=== PATIENT | male | born 1955 | race Caucasian/White ===

== ENCOUNTER 2019-01-17 21:09 | Emergency (ER) | payer MEDICARE, OTHER ==
[2019-01-17 22:12] VITALS: O2SAT 98
[2019-01-17] MEDS ORDERED: Hydromorphone 1 mg/ml Ampule IM ONE (23:05)
[2019-01-17] MEDS ORDERED: Phenergan 25 MG INJ IM ONE (23:06)
[2019-01-17] MEDS ORDERED: Ativan 2 MG/1 ML VIAL IM ONE (23:10)
[2019-01-17] MEDS ORDERED: DELTASONE 10 MG PO ONE (23:11)
[2019-01-17] MEDS ORDERED: Phenergan 25 MG INJ ONE (23:34)
[2019-01-17] MEDS ORDERED: Ativan 2 MG/1 ML VIAL ONE (23:35)
[2019-01-17] MEDS ORDERED: DELTASONE 20 MG ONE (23:35)
[2019-01-17] MEDS ORDERED: Hydromorphone 1 mg/ml Ampule ONE (23:35)
[2019-01-18 00:08] VITALS: BP 144/68; PULSE 65
--- NOTE | 2019-01-18 00:27 | ERPHSYRPT ---
- History of Present Illness Time Seen by Provider: 01/17/19 23:30 Source: patient, family Patient Subjective Stated Complaint: Patient states he has had a headache for 5 weeks, patient states went to chiropractory last week and has been in pain since , CT scan doen yesterday. Dr Mehta office stated arthritis in neck. refered to Dr Sorto /Pain management appointment pending paperwork Triage Nursing Assessment: Narcisa complains of headache for 5 weeks. Narcisa ambulated to ER. Patient states pain was usually on right side of head and neck now his pain is on top of his head Physician History: 63 y/o white male presents with headaches of unknown origin for 5 weeks. pt has seen his pcp, and chiropractor. pain not improved with ultracet or naproxen. pt had a ct scan of head and neck 48 hours ago and no acute process. pt has been tx for sinusitis and given muscle relaxants without benefit. pt denies head trauma and blood pressure has not been sig elevated. Timing/Duration: week(s) (5) Quality: aching, throbbing Head Pain Location: temporal Severity of Pain-Max: moderate Severity of Pain-Current: moderate Recent Head Trauma: no recent headache/trauma Associated Symptoms: denies symptoms, No confusion, No dizziness, No light- headedness, No loss of consciousness, No nausea/vomiting, No nasal congestion, No neck pain, No numbness in legs/feet, No seizures Previous symptoms: same symptoms as today Allergies/Adverse Reactions: No Known Drug Allergies Allergy (Verified 01/17/19 22:12) Home Medications: Lisinopril 20 mg [Zestril 20 MG] 20 01/17/19 [History] Metformin HCl [Metformin ER Gastric] 500 01/17/19 [History] Metoprolol Tartrate 25 mg [Lopressor 25MG Tab] 25 01/17/19 [History] Promethazine HCl 25 mg [Phenergan 25 mg] 12.5 01/17/19 [History] Tramadol HCl/Acetaminophen [Ultracet Tablet] 37.5 - 325 01/17/19 [History] Hx Tetanus, Diphtheria Vaccination/Date Given: Yes Hx Influenza Vaccination/Date Given: No Hx Pneumococcal Vaccination/Date Given: No Immunizations Up to Date: Yes - Review of Systems Constitutional: No Symptoms Eyes: No Symptoms Ears, Nose, & Throat: No Symptoms Respiratory: No Symptoms Cardiac: No Symptoms Abdominal/Gastrointestinal: No Symptoms Genitourinary Symptoms: No Symptoms Musculoskeletal: No Symptoms Skin: No Symptoms Neurological: Headache Psychological: No Symptoms Endocrine: No Symptoms Hematologic/Lymphatic: No Symptoms Immunological/Allergic: No Symptoms All Other Systems: Reviewed and Negative - Past Medical History Pertinent Past Medical History: No Neurological History: No Pertinent History ENT History: No Pertinent History Cardiac History: Hypertension Respiratory History: No Pertinent History Endocrine Medical History: Diabetes Type II Musculoskeletal History: No Pertinent History GI Medical History: No Pertinent History History: No Pertinent History Psycho-Social History: No Pertinent History Male Reproductive Disorders: No Pertinent History - Past Surgical History Past Surgical History: Yes Neuro Surgical History: No Pertinent History Cardiac: No Pertinent History Respiratory: No Pertinent History Gastrointestinal: Hernia Repair Genitourinary: No Pertinent History Musculoskeletal: No Pertinent History Male Surgical History: No Pertinent History Other Surgical History: Colonoscopy - Social History Smoking Status: Never smoker Exposure to second hand smoke: No Drug Use: none Patient Lives Alone: No - Nursing Vital Signs Nursing Vital Signs: Initial Vital Signs Temperature 97.9 F 01/17/19 22:00 Pulse Rate 63 01/17/19 22:00 Respiratory Rate 18 01/17/19 22:00 Blood Pressure 151/84 01/17/19 22:00 O2 Sat by Pulse Oximetry 98 01/17/19 22:00 Pain Scale Pain Intensity 9 - Physical Exam General Appearance: moderate distress, alert, anxiety, obese Eye Exam: PERRL/EOMI, eyes nml inspection Ears, Nose, Throat Exam: normal ENT inspection, moist mucous membranes Neck Exam: normal inspection, non-tender, supple, full range of motion Respiratory Exam: normal breath sounds, lungs clear, No chest tenderness, No respiratory distress Gastrointestinal/Abdominal Exam: No tenderness Back Exam: normal inspection, normal range of motion, No CVA tenderness, No vertebral tenderness Extremity Exam: normal inspection, normal range of motion, pelvis stable Mental Status Exam: alert, oriented x 3, 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 Exam: normal hearing, normal speech, PERRL, tongue midline Coordination/Gait Exam: normal finger to nose, normal gait, normal cerebellar function Motor/Sensory Exam: no motor deficit, no sensory deficit Skin Exam: normal color, warm, dry Lymphatic Exam: No adenopathy SpO2 Interpretation: normal SpO2: 98 O2 Delivery: Room Air - Course Nursing assessment & vital signs reviewed: Yes Ordered Tests: Medication Summary Discontinued Medications Generic Name Dose Route Start Last Admin Trade Name Andi PRSilvana Reason Stop Dose Admin Hydromorphone HCl 1 mg 01/17/19 23:05 01/17/19 23:43 Hydromorphone 1 Mg/Ml Ampule IM 01/17/19 23:06 1 mg STAT ONE Administration Hydromorphone HCl Confirm 01/17/19 23:35 Hydromorphone 1 Mg/Ml Ampule Administered 01/17/19 23:36 Dose 1 mg .ROUTE .STK-MED ONE Lorazepam 0.5 mg 01/17/19 23:10 01/17/19 23:53 Ativan 2 Mg/1 Ml Vial IM 01/17/19 23:11 0.5 mg STAT ONE Administration Lorazepam Confirm 01/17/19 23:35 Ativan 2 Mg/1 Ml Vial Administered 01/17/19 23:36 Dose 2 mg .ROUTE .STK-MED ONE Prednisone 10 mg 01/17/19 23:11 01/17/19 23:52 Deltasone 10 Mg PO 01/17/19 23:12 10 mg STAT ONE Administration Prednisone Confirm 01/17/19 23:35 Deltasone 20 Mg Administered 01/17/19 23:36 Dose 20 mg .ROUTE .STK-MED ONE Promethazine HCl 12.5 mg 01/17/19 23:06 01/17/19 23:52 Phenergan 25 Mg Inj IM 01/17/19 23:07 12.5 mg STAT ONE Administration Promethazine HCl Confirm 01/17/19 23:34 Phenergan 25 Mg Inj Administered 01/17/19 23:35 Dose 25 mg .ROUTE .STK-MED ONE - Progress Progress: improved Air Movement: good Progress Note: 01/18/19 00:27 pt comfortable and asleep. pt states headache is sig improved. Blood Culture(s) Obtained: No Antibiotics given: No Counseled pt/family regarding: diagnosis, need for follow-up - Departure Departure Disposition: Home Clinical Impression: Migraine Condition: Stable Critical Care Time: No Referrals: DESMOND MEHTA MD [Primary Care Provider] - Additional Instructions: stop all other headache pain medication. use only the medications i have prescribed. call your primary doctor to arrange appointment with neurologist or pain management if indicated. monitor your blood glucose while taking the steroids. Prescriptions: Carisoprodol 350 mg [Soma 350 mg] 350 mg PO Q12H PRN PRN #8 tablet PRN Reason: Muscle Spasms Oxycodone HCl/Acetaminophen [Percocet 5-325 mg Tablet] 1 each PO Q12H PRN PRN # 8 tablet MDD 2 PRN Reason: Pain Prednisone 10 mg [Deltasone 10 mg] 10 mg PO BID #6 tablet
== END 2019-01-18 00:41 | disposition home or self-care (01) ==
LOC: ED 21:09
DX: G43.909 Migraine, unspecified, not intractable, without status migrainosus (principal); Z79.899 Other long term (current) drug therapy; I10 Essential (primary) hypertension; E11.9 Type 2 diabetes mellitus without complications
CPT/HCPCS: 96372; 99284; J1170; J2060; J2550; A9270-GY

== ENCOUNTER 2019-01-30 23:13 | Emergency (ER) | payer MEDICARE ==
--- NOTE | 2019-01-30 23:18 | ERPHSYRPT ---
- History of Present Illness Time Seen by Provider: 01/30/19 23:18 Source: patient Exam Limitations: no limitations Physician History: 63 years old male with history of hypertension, diabetes mellitus present in the yard with chief complaint of right-sided headache and neck pain. The patient will having right-sided neck pain with radiation to the right temporal area more to capacity, sharp nature without any significant ambulating and relieving factor except for medications. He has CT head and neck without any acute findings,, doing followup with chiropractor and is currently scheduled to see pain management. He was seen in the ER a few days ago with similar symptoms which improved with symptomatic treatments. Denies any difficulty speech, numbness tingling or focal weakness. No fever or chills reported. Timing/Duration: week(s), intermittent (a) Quality: sharpness Head Pain Location: frontal, temporal Severity of Pain-Max: moderate Severity of Pain-Current: moderate Recent Head Trauma: frequent headaches Modifying Factors: Improves With: other Associated Symptoms: denies symptoms, neck pain, No confusion, No dizziness, No facial pain, No fever/chills, No nausea/vomiting, No nasal congestion, No numbness in legs/feet, No sinus infection, No sensitive to light, No speech problems, No stiff neck, No trouble walking, No vision changes, No visual disturbance, No weakness Allergies/Adverse Reactions: No Known Drug Allergies Allergy (Verified 01/30/19 23:39) Home Medications: Lisinopril 20 mg [Zestril 20 MG] 20 mg PO DAILY 01/17/19 [History] Metformin HCl [Metformin ER Gastric] 500 mg PO DAILY 01/17/19 [History] Metoprolol Tartrate 25 mg [Lopressor 25MG Tab] 25 mg PO DAILY 01/17/19 [ History] Promethazine HCl 25 mg [Phenergan 25 mg] 12.5 mg PO DAILY 01/17/19 [ History] Tramadol HCl/Acetaminophen [Ultracet Tablet] 37.5 - 325 mg PO DAILY 01/17/19 [ History] Hx Tetanus, Diphtheria Vaccination/Date Given: Yes Hx Influenza Vaccination/Date Given: No Hx Pneumococcal Vaccination/Date Given: No - Review of Systems Constitutional: No Symptoms Eyes: No Symptoms Ears, Nose, & Throat: No Symptoms Respiratory: No Symptoms Cardiac: No Symptoms Abdominal/Gastrointestinal: No Symptoms Genitourinary Symptoms: No Symptoms Musculoskeletal: No Symptoms Skin: No Symptoms Neurological: Headache, No Sensory Changes Psychological: No Symptoms Endocrine: No Symptoms Hematologic/Lymphatic: No Symptoms Immunological/Allergic: No Symptoms All Other Systems: Reviewed and Negative - Past Medical History Pertinent Past Medical History: No Neurological History: No Pertinent History ENT History: No Pertinent History Cardiac History: Hypertension Respiratory History: No Pertinent History Endocrine Medical History: Diabetes Type II Musculoskeletal History: No Pertinent History GI Medical History: No Pertinent History History: No Pertinent History Psycho-Social History: No Pertinent History Male Reproductive Disorders: No Pertinent History - Past Surgical History Past Surgical History: Yes Neuro Surgical History: No Pertinent History Cardiac: No Pertinent History Respiratory: No Pertinent History Gastrointestinal: Hernia Repair Genitourinary: No Pertinent History Musculoskeletal: No Pertinent History Male Surgical History: No Pertinent History Other Surgical History: Colonoscopy - Social History Smoking Status: Never smoker Exposure to second hand smoke: No Drug Use: none Patient Lives Alone: No - Nursing Vital Signs Nursing Vital Signs: Initial Vital Signs Temperature 97.5 F 01/30/19 23:17 Pulse Rate 72 01/30/19 23:17 Respiratory Rate 18 01/30/19 23:17 Blood Pressure 173/68 01/30/19 23:17 O2 Sat by Pulse Oximetry 98 01/30/19 23:17 Pain Scale Pain Intensity 8 - Physical Exam General Appearance: no apparent distress Eye Exam: PERRL/EOMI, eyes nml inspection Ears, Nose, Throat Exam: normal ENT inspection, TMs normal, pharynx normal Neck Exam: normal inspection, supple, other (mild tenderness trapezius area. 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 Exam: normal hearing, normal speech, PERRL Coordination/Gait Exam: normal finger to nose, normal cerebellar function Motor/Sensory Exam: no motor deficit, no sensory deficit, no pronator drift, negative Babinski's sign DTR Exam: bicep (R): 2+, bicep (L): 2+, knee (R): 2+, knee (L): 2+ Skin Exam: normal color SpO2 Interpretation: normal O2 Delivery: Room Air - Course Nursing assessment & vital signs reviewed: Yes Ordered Tests: Medication Summary Discontinued Medications Generic Name Dose Route Start Last Admin Trade Name Andi PRN Reason Stop Dose Admin Diphenhydramine HCl 25 mg 01/31/19 00:00 01/31/19 00:50 Benadryl 50 Mg/Ml IV 01/31/19 00:01 Not Given STAT ONE Diphenhydramine HCl 50 mg 01/31/19 00:16 01/31/19 00:39 Benadryl 50 Mg/Ml IM 01/31/19 00:17 50 mg STAT ONE Administration Diphenhydramine HCl Confirm 01/31/19 00:19 Benadryl 50 Mg/Ml Administered 01/31/19 00:20 Dose 50 mg .ROUTE .STK-MED ONE Droperidol 1.25 mg 01/31/19 00:00 01/31/19 00:50 Inapsine 5 Mg/2 Ml IV 01/31/19 00:01 Not Given STAT ONE Ketorolac Tromethamine 30 mg 01/31/19 00:00 01/31/19 00:50 Toradol 30 Mg Injection IV 01/31/19 00:01 Not Given STAT ONE Ketorolac Tromethamine 60 mg 01/31/19 00:16 01/31/19 00:40 Toradol 30 Mg Injection IM 01/31/19 00:17 60 mg STAT ONE Administration Ketorolac Tromethamine Confirm 01/31/19 00:19 Toradol 30 Mg Injection Administered 01/31/19 00:20 Dose 60 mg .ROUTE .STK-MED ONE Metoclopramide HCl 10 mg 01/31/19 00:16 01/31/19 00:42 Reglan 10 Mg/2 Ml IM 01/31/19 00:17 10 mg STAT ONE Administration Metoclopramide HCl Confirm 01/31/19 00:20 Reglan 10 Mg/2 Ml Administered 01/31/19 00:21 Dose 10 mg .ROUTE .STK-MED ONE - Progress Progress: improved, re-examined Air Movement: fair Progress Note: 63 years old is evaluated for right-sided head and neck pain. Is nonfocal neuro exam. Headache is similar to previous episodes. He has imaging done in the past I have reviewed report of CT head which was negative. He does not have any weakness in the upper extremities. No midline neck tenderness. I have given him might in cocktail and on evaluation patient is feeling better. Patient wanted shot of Dilaudid for her headache which is counseled that that not being the first line medication. Patient improved on reevaluation. it was a difficult encounter. AllHe is being discharged with outpatient followup with primary care/pain management and I would also give him a referral for neurology. Discussed signs and symptoms of worsening return to ER which he seemed understanding. Stable for discharge. 01/31/19 01:34 01/31/19 01:45 Counseled pt/family regarding: diagnosis, need for follow-up - Departure Departure Disposition: Home Clinical Impression: Cervicalgia Migraine Qualifiers: Migraine type: other Status migrainosus presence: without status migrainosus Intractability: not intractable Qualified Code(s): G43.809 - Other migraine, not intractable, without status migrainosus Condition: Stable Critical Care Time: No Referrals: DESMOND MEHTA MD [Primary Care Provider] - Follow Up with PCP/3 days () Additional Instructions: keep appointment with pain management as scheduled. take pain medications and muscle relaxants as needed.followup and neurology for reevaluation. Return to ER for intractable headache, numbness tingling weakness, difficulty speech, visual symptoms etc. Prescriptions: Tizanidine HCl 4 mg [Zanaflex 4 MG] 4 mg PO BID PRN #30 tablet
[2019-01-31] MEDS ORDERED: TORAdol 30 mg Injection IV ONE
[2019-01-31] MEDS ORDERED: Inapsine 5 MG/2 ML IV ONE
[2019-01-31] MEDS ORDERED: BENADRYL 50 MG/ML IV ONE
[2019-01-31] MEDS ORDERED: BENADRYL 50 MG/ML IM ONE (00:16)
[2019-01-31] MEDS ORDERED: TORAdol 30 mg Injection IM ONE (00:16)
[2019-01-31] MEDS ORDERED: Reglan 10 MG/2 ML IM ONE (00:16)
[2019-01-31] MEDS ORDERED: TORAdol 30 mg Injection ONE (00:19)
[2019-01-31] MEDS ORDERED: BENADRYL 50 MG/ML ONE (00:19)
[2019-01-31] MEDS ORDERED: Reglan 10 MG/2 ML ONE (00:20)
[2019-01-31 02:09] VITALS: BP 164/89; PULSE 71; O2SAT 96
== END 2019-01-31 02:09 | disposition home or self-care (01) ==
LOC: ED 23:13
DX: M54.2 Cervicalgia (principal); G43.809 Other migraine, not intractable, without status migrainosus
CPT/HCPCS: 96372; 99284; J1200; J1885